=== PATIENT | female | born 1995 ===

== ENCOUNTER 2016-12-11 20:43 | Inpatient (IN) | payer OTHER ==
[~2016-12-11] VITALS: Ht 160 cm; Wt 62.3 kg
[2016-12-11] MEDS ORDERED: PRENATAL1 TA7 PO (21:46)
[2016-12-11 22:00] VITALS: BP 144/90; PULSE 63
[2016-12-11 22:13] LABS: BASO % 0.4 % (0.0-2.0); EOS # 0.1 (0.0-0.7); EOS % 0.8 % (0-4.0); GRAN # 7.2 (1.4-6.5); GRAN % 67.2 % (42.2-75.2); LYMPH # 2.3 (1.2-3.4); LYMPH % 21.1 % (20.0-51.0); MEAN CELL VOLUME 88 fl (80.0-100.0); MEAN CORPUSCULAR HGB CONC 35 g/dl (33.0-37.0); MEAN PLATELET VOLUME 12.9 fl (7.4-10.4); MONO # 1.1 (0.1-0.6); MONO % 9.8 % (1.7-9.3); PLATELET COUNT 171 K/mm3 (130-400); RED BLOOD COUNT 3.87 M/mm3 (4.10-5.30); REDCELL DISTRIBUTION WIDTH-CV 13.5 % (11.5-14.5); WHITE BLOOD COUNT 10.7 K/mm3 (4.8-10.8)
[2016-12-11 22:14] LABS: HEMOGLOBIN 11.9 g/dl (12.5-16.0); MEAN CORPUSCULAR HEMOGLOBIN 31 pg (27.0-31.0)
[2016-12-11 22:38] VITALS: BP 151/99; PULSE 70; TEMP 97.9
[2016-12-11 23:15] VITALS: BP 151/96; PULSE 90
[2016-12-11 23:45] VITALS: BP 122/76; PULSE 78
[2016-12-12] VITALS (36 sets, daily range): BP systolic 120–165; BP diastolic 67–97; PULSE 62–112; TEMP 97.7–99.8
[2016-12-13 07:07] VITALS: BP 138/96; PULSE 83; TEMP 98
[2016-12-13] MEDS ORDERED: MOTRIN 800800 MG/TAB PO (08:31)
[2016-12-13] MEDS ORDERED: PERCOCET 325 MG1 TA2 PO (08:32)
[2016-12-13 16:15] VITALS: BP 136/90; PULSE 75; TEMP 97.9
[2016-12-13 19:40] VITALS: BP 145/89; PULSE 73; TEMP 97.9
[2016-12-14 08:15] VITALS: BP 138/99; PULSE 97; TEMP 97.9
== END 2016-12-14 12:55 | disposition home or self-care (01) | DRG 775 ==
LOC: LDRO 20:43 → LDR 21:31 → OB 21:31
PROVIDERS: Obstetrics & Gynecology
PROC: 10E0XZZ Delivery of Products of Conception, External Approach (ICD-10-PCS; principal; 2016-12-12)
PROC: 0KQM0ZZ Repair Perineum Muscle, Open Approach (ICD-10-PCS; 2016-12-12)
DX: O99.824 Streptococcus B carrier state complicating childbirth (principal); O69.81X0 Labor and delivery complicated by cord around neck, without compression, not applicable or unspecified; O70.1 Second degree perineal laceration during delivery; Z3A.38 38 weeks gestation of pregnancy; Z37.0 Single live birth; Z23 Encounter for immunization
CPT/HCPCS: J2540; J2590; J7120